=== PATIENT | female | born 1980 | race Caucasian/White ===

== ENCOUNTER 2021-07-02 09:57 | Emergency (ER) | payer BC, MEDICAID ==
[2021-07-02] MEDS ORDERED: Ketorolac 60 MG/2 ML SDV IM ONE (13:41)
[2021-07-02] MEDS ORDERED: Orphenadrine 60 MG/2 ML Inj IM ONE (13:41)
== END 2021-07-02 14:18 | disposition home or self-care (01) ==
LOC: MW.ED 09:57
DX: M54.50 Low back pain, unspecified (principal); G89.29 Other chronic pain; Z79.899 Other long term (current) drug therapy
CPT/HCPCS: 81003; 81025; 96372; 99283; J1885; J2360

== ENCOUNTER 2022-06-18 21:46 | Emergency (ER) | payer SELFPAY ==
[2022-06-18] MEDS ORDERED: Dexamethasone 10 MG/ML SDV PO ONE (22:04)
[2022-06-18] MEDS ORDERED: Albuterol/Ipratropium 3.0-0.5 MG/3 ML Neb Soln NEB ONE (22:04)
[2022-06-18] MEDS ORDERED: chlordiazePOXIDE 25 MG Cap PO ONE (22:06)
[2022-06-18 23:05] LABS: CORONAVIRUS COVID-19 NAA NEGATIVE (NEGATIVE); INFLUENZA A NAA NEGATIVE (NEGATIVE); INFLUENZA B NAA NEGATIVE (NEGATIVE)
== END 2022-06-18 22:59 ==
LOC: MW.ED 21:46
DX: J20.9 Acute bronchitis, unspecified (principal); F13.20 Sedative, hypnotic or anxiolytic dependence, uncomplicated; Z20.822 Contact with and (suspected) exposure to COVID-19
CPT/HCPCS: 0240U; 71045; 99284; A9270; J8540; 99283; J7620-GY